=== PATIENT | female | born 1985 | race Two or more races ===

== ENCOUNTER → 2016-12-08 | Outpatient (CLI) | payer BC ==
--- NOTE | 2016-12-08 17:54 | RADRPT ---
PROCEDURE: Left knee radiographs. CLINICAL INDICATION: Left knee pain. TECHNIQUE: Three views. Weight bearing. Frontal, lateral, and patellar view. COMPARISON: No prior studies are available for comparison. FINDINGS: There is no fracture or dislocation. The soft tissues are normal. Articular surfaces are intact. There is no lytic or blastic lesion. There is no radiopaque foreign body. IMPRESSION: 1. Normal images of the left knee. RPTAT: QQ .Michael Whiting MD, MD Date Time Electronically viewed and signed by .Michael Whiting MD, MD on 12/08/2016 17:54 .R/
--- NOTE | 2016-12-09 06:44 | HKNOTE ---
DATE OF SERVICE: 12/08/2016 MAIN COMPLAINT: Pain in the left knee. HISTORY OF MAIN COMPLAINT: The patient is a 31-year-old female, who recently went on vacation to the [place] with her boyfriend. [place] directly on her left knee. She is not able to walk. She had to be helped back home. At first the knee was severely swollen. In the past 2 days, she has improved remarkably. The knee became extremely swollen after the fall. The knee has felt unstable on at least 3 occasions. The knee has not locked (although patient indicated herself that sometimes when she wants to get walking she has to "shake the knee" before she can be started). At night, she has a burning pain in the knee. She occasionally gets rest pain. She also takes [____]. She was taken to an outpatient clinic where an x-ray of the knee was obtained, which did not show any fractures. An abrasion over the patella was cleaned and dressed. She has being taking ibuprofen for the pain. She limps part of the time. She is not using a cane or any other walking aide. The patient does not have a shoe lift. She can clip her toenails and tie shoe laces. PREVIOUS ORTHOPEDIC OPERATIONS: None. PRIOR CORTISONE INTAKE: None. ALCOHOL INTAKE: None. OTHER JOINT PROBLEMS: None. BLOOD TESTS FOR ARTHRITIS: None. PRIOR INJURIES TO HIPS OR KNEES: As noted above. PAST MEDICAL HISTORY: Not completed by the patient. SYSTEMS REVIEW: Not completed by the patient. MEDICATIONS: None. PHYSICAL EXAMINATION: GENERAL: An extremely beautiful, young, 31-year-old female. She comes in with her mother. She walks without a walking aid. She has a slight limp. VITAL SIGNS: Height 4 foot 5 inches, weight 100 pounds. Blood pressure 115/65, temperature 98.8. HIP EXAMINATION: Both hips have full range of motion without pain. EXAMINATION OF THE LEFT KNEE: There is a large abrasion over the knee which has healed up somewhat in the past 10 days. She had it covered when she came in. No debridement is needed to be done with this wound. She is given extra Band-Aids to apply to the small wound. The patient walks without a walking aid. There is full range of motion without pain. No tenderness over the patella. Marked tenderness over the medial joint line; 1+ effusion present. Patella tracks normally. No pain. IMAGING: Plain x-rays of the left knee obtained today were reviewed (3 views). These show that there are no fractures. The alignment of the knee is normal. There are no secondary arthritic changes in the knee. ASSESSMENT: 1. Probable contusion/sprain of the knee with abrasion. 2. The patient gets a burning pain with the knee at night but she is not sensitive to anything rubbing on the knee. The pain seems to be worse at night. She takes ibuprofen which helps considerably. PLAN: This is a 31-year-old female, who tripped and landed directly on her left knee apparently without any twisting of the knee or leg. She does not have a clear-cut account of instability and rearing on the left side. If she does, I will give you the puente back, and you can take it back to her. Dictated By: Vj Johnson MD /[email or web address]/[email or web address] /Document#: [id number]
== END | disposition home or self-care (01) ==
LOC: HKI 15:16
DX: M25.562 Pain in left knee (principal)